=== PATIENT | female | born 2000 | race Caucasian/White ===

== ENCOUNTER 2022-01-11 21:49 | Inpatient (IN) ==
[2022-01-11] MEDS ORDERED: Naloxone 0.4 MG/ML INJ IVP PRN ×2 (22:29→22:33)
[2022-01-11] MEDS ORDERED: Azithromycin 500 MG in 0.9 % Sodium Chloride 250 ML IVPB PRN (22:29)
[2022-01-11] MEDS ORDERED: Metoclopramide 10 MG/2 ML VIAL IVP PRN (22:29)
[2022-01-11] MEDS ORDERED: Famotidine 20 MG/2 ML VIAL IVP PRN (22:29)
[2022-01-11] MEDS ORDERED: Ondansetron 4 MG/2 ML VIAL IVP PRN (22:33)
[2022-01-11] MEDS ORDERED: Ropivacaine/PF 0.2% 20 ML VIAL EP ONE (22:33)
[2022-01-11] MEDS ORDERED: EPHEDrine 50 MG/ML VIAL IVP PRN (22:33)
[2022-01-11] MEDS ORDERED: *HR* FentaNYL (PF) 100 MCG/2 ML VIAL EP ONE (22:33)
[2022-01-11] MEDS ORDERED: Epidural Premix (fent/bupiv) 110 ML EP SCH (22:45)
[2022-01-11 23:00] LABS: Basophils % 0.3 %; Eosinophils % 0.4 %; Hematocrit 38.1 % (35.3-44.9); Hemoglobin 12.7 g/dL (11.5-15.4); Immature Granulocytes % 0.5 % (0-4); Lymphocytes # 2.3 K/mcL (0.6-4.6); Lymphocytes % 22.7 %; Mean Corpuscular HGB Conc 33.3 g/dL (31.6-35.5); Mean Corpuscular Volume 92.9 fL (83.0-100.0); Mean Platelet Volume 11.5 fL (9.4-12.4); Monocytes # 0.9 K/mcL (0.0-1.3); Monocytes % 8.7 %; Neutrophils # 6.9 K/mcL (1.6-8.9); Platelet Count 255 K/mcL (140-400); Red Cell Distribution Width 13.1 % (11.5-14.5); Segmented Neutrophils % 67.4 %; White Blood Count 10.2 K/mcL (4.3-11.1)
[2022-01-11] MEDS: miSOPROStoL 25 MCG TABLET VG PRN (23:08)
[2022-01-11 23:11] LABS: Amphetamine Screen,Urine Negative ng/mL (Cutoff=1000); Barbiturate Screen,Urine Negative ng/mL (Cutoff=200); Benzodiazepines Screen,Urine Negative ng/mL (Cutoff=200); Cannabinoid Screen,Urine Negative ng/mL (Cutoff = 50); Cocaine Screen,Urine Negative ng/mL (Cutoff= 300); Opiate Screen,Urine Negative ng/mL (Cutoff=300); Phencyclidine Screen,Urine Negative ng/mL (Cutoff=25); Protein/Creatinine Ratio,Urine 0.16 mg/mg (0.00-0.20)
[2022-01-11 23:18] LABS: Alanine Aminotransferase 7 Units/L (7-52); Aspartate Amino Transferase 12 Units/L (13-39); BUN/Creatinine Ratio 12 (6-26); Blood Urea Nitrogen 7 mg/dL (6-20); Lactate Dehydrogenase 157 Units/L (140-271); Uric Acid 5.8 mg/dL (2.3-7.6); eGFR For African Americans > 60; eGFR For Non-African Americans > 60
[2022-01-11 23:33] LABS: Influenza A PCR Negative (Negative); Influenza B PCR Negative (Negative); Resp. Syncytial Virus PCR Negative (Negative)
[2022-01-11 23:38] LABS: SARS-CoV-2 by PCR (In House) Negative (Negative)
[2022-01-12] MEDS: miSOPROStoL 25 MCG TABLET VG PRN (03:29)
[2022-01-12] MEDS ORDERED: Ringers Solution, Lactated 1,000 ML IVC SCH ×2 (10:15→14:34)
[2022-01-12] MEDS ORDERED: Ringers Solution, Lactated 1,000 ML ONE (10:15)
[2022-01-12] MEDS ORDERED: *HR* Propofol 200 MG/20 ML VIAL IVP ONE ×2 (10:41→13:17)
[2022-01-12] MEDS ORDERED: Oxytocin 30 UNIT/503 ML BAG IVC ONE (10:42)
[2022-01-12] MEDS ORDERED: *HR* HYDROMORPHONE 2 MG/ML VIAL ONE ×2 (10:52→13:59)
[2022-01-12] MEDS ORDERED: *HR* Succinylcholine 200 MG/10 ML VIAL IVP ONE ×2 (10:52→13:17)
[2022-01-12] MEDS ORDERED: *HR* Rocuronium Bromide 50 MG/5 ML VIAL ONE ×2 (10:53→13:32)
[2022-01-12] MEDS ORDERED: Ketorolac 30 MG/ML VIAL ONE ×2 (11:00→13:36)
[2022-01-12] MEDS ORDERED: Acetaminophen IV 1,000 MG/100 ML BAG IVPB ONE (11:00)
[2022-01-12] MEDS ORDERED: Ondansetron 4 MG/2 ML VIAL ONE ×2 (11:02→13:36)
[2022-01-12] MEDS ORDERED: *HR* HYDROmorphone PCA *PREMADE* 20 MG/1MG/ML (20mL) PCA VIAL IVC PRN ×2 (12:36→14:34)
[2022-01-12] MEDS ORDERED: Acetaminophen IV 0 MG/0 ML BAG IVPB ONE (13:55)
[2022-01-12] MEDS ORDERED: Ketamine *HR* 500 MG/10 ML MDV ONE (13:59)
[2022-01-12] MEDS ORDERED: Simethicone 80 MG TAB.CHEW PO PRN (14:34)
[2022-01-12] MEDS ORDERED: Ondansetron 4 MG/2 ML VIAL IVP PRN (14:34)
[2022-01-12] MEDS ORDERED: Rho Immune Globulin 1,500 UNIT SYRINGE IM ONE (14:34)
[2022-01-12] MEDS ORDERED: Metoclopramide 10 MG/2 ML VIAL IVP PRN (14:34)
[2022-01-12] MEDS ORDERED: Oxytocin 30 UNIT/503 ML BAG IVC SCH (14:34)
[2022-01-12] MEDS: Ibuprofen 600 MG TABLET PO SCH ×2 (15:41→20:54)
[2022-01-12] MEDS: cephALEXin 500 MG CAPSULE PO SCH ×2 (15:41→20:54)
[2022-01-12] MEDS: metroNIDAZOLE 500 MG TABLET PO SCH ×2 (15:41→20:54)
[2022-01-12] MEDS: Acetaminophen 325 MG TABLET PO SCH ×2 (15:41→20:54)
[2022-01-12] MEDS: *HR* Enoxaparin 60 MG/0.6 ML SYRINGE SQ SCH (20:54)
[2022-01-13 05:11] LABS: Basophils % 0.2 %; Eosinophils % 0.2 %; Hematocrit 32.1 % (35.3-44.9); Immature Granulocytes % 0.5 % (0-4); Lymphocytes # 2.3 K/mcL (0.6-4.6); Lymphocytes % 17.3 %; Mean Corpuscular HGB Conc 33.3 g/dL (31.6-35.5); Mean Corpuscular Hemoglobin 31.3 pg (28.0-33.3); Mean Corpuscular Volume 93.9 fL (83.0-100.0); Mean Platelet Volume 11.1 fL (9.4-12.4); Monocytes % 7.8 %; Neutrophils # 9.8 K/mcL (1.6-8.9); Platelet Count 234 K/mcL (140-400); Red Blood Count 3.42 M/mcL (3.82-4.97); White Blood Count 13.2 K/mcL (4.3-11.1)
[2022-01-13 05:12] LABS: Hemoglobin 10.7 g/dL (11.5-15.4)
[2022-01-13] MEDS: Acetaminophen 325 MG TABLET PO SCH ×4 (06:28→19:38)
[2022-01-13] MEDS: *HR* OxyCODONE Immed Rel 5 MG TABLET PO PRN ×3 (06:28→17:11)
[2022-01-13] MEDS: Ibuprofen 600 MG TABLET PO SCH ×4 (06:28→19:37)
[2022-01-13] MEDS: cephALEXin 500 MG CAPSULE PO SCH ×3 (08:49→22:37)
[2022-01-13] MEDS: metroNIDAZOLE 500 MG TABLET PO SCH ×3 (08:49→22:37)
[2022-01-13] MEDS: *HR* Enoxaparin 60 MG/0.6 ML SYRINGE SQ SCH ×2 (08:49→22:38)
[2022-01-13] MEDS: Prenatal Vit/FA 1 EACH TABLET PO SCH (08:49)
[2022-01-13 18:50] VITALS: O2SAT 97
[2022-01-14] MEDS: Acetaminophen 325 MG TABLET PO SCH ×2 (02:15→09:27)
[2022-01-14] MEDS: Ibuprofen 600 MG TABLET PO SCH ×2 (02:15→09:26)
[2022-01-14] MEDS: *HR* OxyCODONE Immed Rel 5 MG TABLET PO PRN ×2 (06:46→12:23)
[2022-01-14 07:02] VITALS: BP 118/81; PULSE 73; TEMP 97.9
[2022-01-14] MEDS: cephALEXin 500 MG CAPSULE PO SCH (09:27)
[2022-01-14] MEDS: *HR* Enoxaparin 60 MG/0.6 ML SYRINGE SQ SCH (09:27)
[2022-01-14] MEDS: Prenatal Vit/FA 1 EACH TABLET PO SCH (09:27)
[2022-01-14] MEDS: metroNIDAZOLE 500 MG TABLET PO SCH (09:27)
== END 2022-01-14 13:01 | disposition home or self-care (01) | DRG 850 ==
LOC: 1NENULAB 21:49 → 1NENUOBS 01-12 14:34
PROVIDERS: ADMIT Student in an Organized Health Care Education/Training Program; ATTEND Student in an Organized Health Care Education/Training Program